=== PATIENT | male | born 1950 | race Two or more races ===

== ENCOUNTER 2024-07-07 10:01 | Emergency (ER) | payer OTHER ==
[~2024-07-07] VITALS: Ht 167.6 cm; Wt 79.4 kg
[2024-07-07] MEDS ORDERED: METFORMIN HCL500 M4 PO (10:23)
[2024-07-07 11:13] LABS: HEMATOCRIT 46.3 % (39.0-48.0); HEMOGLOBIN 15.8 g/dL (13-16.00); MEAN CELL VOLUME 91.4 fL (80.0-100.00); MEAN CORPUSCULAR HEMOGLOBIN 31.1 pg (27.00-32.0); PLATELET COUNT 173 K/uL (150-450); RED BLOOD COUNT 5.07 M/uL (4.00-6.00); RED CELL DISTRIBUTION WIDTH 13.3 % (11.5-14.5)
[2024-07-07 11:38] LABS: ALBUMIN 3.4 gm/dL (3.4-5.0); BILIRUBIN TOTAL 0.7 mg/dL (0.3-1.2); BILIRUBIN,CONJUGATED 0.22 mg/dL (0.0-0.2); BILIRUBIN,UNCONJUGATED 0.48 mg/dL (0.0-0.6); CALCIUM 8.6 mg/dL (8.5-10.1); CREATININE SERUM 1.44 mg/dL (0.70-1.30); GFR 47.82; POTASSIUM 4.02 mEq/L (3.5-5.1); TOTAL PROTEIN 7.2 gm/dL (6.4-8.2)
[2024-07-07 12:20] LABS: URINE APPEARANCE Clear; URINE BILIRRUBIN Negative (NEGATIVE); URINE BLOOD Trace; URINE COLOR Dark Yellow; URINE KETONE Trace (NEGATIVE); URINE LEUKOCYTE Negative; URINE NITRATE Negative; URINE PROTEIN 30 (NEGATIVE); URINE UROBILINOGEN 0.2 E.U./dl
[2024-07-07 12:21] LABS: URINE BACTERIA 26.4 uL (0.0-1933); URINE CAST 2.74 uL (0.0-1.40); URINE EPITHELIAL CELLS 7.8 uL (0.0-38.8); URINE RBC 2.5 uL (0.0-20.8); URINE WBC 7.5 uL (0.0-23.2)
[2024-07-07 12:32] LABS: URINE GLUCOSE >=1000 MG/DL (NEGATIVE)
== END 2024-07-07 14:08 | disposition home or self-care (01) ==
LOC: ER 10:01
PROVIDERS: General Practice
DX: J40 Bronchitis, not specified as acute or chronic (principal); R55 Syncope and collapse; R06.02 Shortness of breath; Z88.0 Allergy status to penicillin

== ENCOUNTER 2024-07-07 16:47 | Inpatient (IN) | payer OTHER ==
[~2024-07-07] VITALS: Ht 167.6 cm; Wt 78.0 kg
[~2024-07-07 16:47] MED LIST: METFORMIN HCL500 M4 PO
[2024-07-07] MEDS ORDERED: ACETAMINOPHEN 500 MG GEL..CAP PO ONE (17:45)
[2024-07-07] MEDS ORDERED: ATORVASTATIN CALCIUM 40 MG TABLET PO SCH (18:34)
[2024-07-07] MEDS ORDERED: ASPIRIN 81 MG TAB.CHEW PO SCH (18:34)
[2024-07-07] MEDS ORDERED: INSULIN LISPRO 1,000 UNIT/10 ML UNITS SUBCUTANEO PRN (18:45)
[2024-07-07] MEDS ORDERED: DEXTROSE 50 % IN WATER 0.5 G/ML DISP.SYRIN IV PRN (18:45)
[2024-07-07] MEDS ORDERED: 0.9 % SODIUM CHLORIDE 1,000 ML IV SCH (18:45)
[2024-07-07] MEDS ORDERED: ACETAMINOPHEN 500 MG GEL..CAP PO PRN (18:45)
[2024-07-07] MEDS ORDERED: ONDANSETRON HCL 4 MG in 0.9 % SODIUM CHLORIDE 50 ML IV PRN (18:45)
[2024-07-07 19:29] LABS: INR 1.1; PARTIAL THROMBOPLASTIN TIME 26.5 SECONDS (22.0-34.0); PROTHROMBIN TIME 11.9 SECONDS (9.0-11.5)
[2024-07-07 20:54] VITALS: BP 111/74; O2SAT 96
[2024-07-08 01:03] VITALS: BP 130/78; O2SAT 98
[2024-07-08 07:44] LABS: CHOL HDL RATIO 3.5 (0-5.0); TSH 3.32 uIU/mL (0.358-3.74)
[2024-07-08 08:10] VITALS: BP 127/69; O2SAT 98
[2024-07-08] MEDS ORDERED: FAMOTIDINE/PF 20 MG in 0.9 % SODIUM CHLORIDE 8 ML IV PUSH SCH (09:00)
[2024-07-08 09:11] LABS: HEMATOCRIT 47.6 % (39.0-48.0); HEMOGLOBIN 16.1 g/dL (13-16.00); MEAN CELL VOLUME 91.8 fL (80.0-100.00); MEAN CORPUSCULAR HGB CONC 33.8 g/dl (32.0-36.0); PLATELET COUNT 177 K/uL (150-450); RED BLOOD COUNT 5.18 M/uL (4.00-6.00); RED CELL DISTRIBUTION WIDTH 13.9 % (11.5-14.5)
[2024-07-08 09:38] LABS: ERYTHROCYTE SEDIMENTATION RATE 14 mm/hr
[2024-07-08 09:41] LABS: ALBUMIN 3.5 gm/dL (3.4-5.0); BILIRUBIN TOTAL 0.7 mg/dL (0.3-1.2); CALCIUM 8.7 mg/dL (8.5-10.1); CREATININE SERUM 1.47 mg/dL (0.70-1.30); GFR 46.7; GLOBULINA 4.3 G/DL (2.4-3.5); POTASSIUM 3.33 mEq/L (3.5-5.1); TOTAL PROTEIN 7.8 gm/dL (6.4-8.2)
[2024-07-08 09:51] LABS: C-REACTIVE PROTEIN 19.6 MG/DL (0.00-0.29)
[2024-07-08 10:05] LABS: URINE APPEARANCE Clear; URINE BILIRRUBIN Negative (NEGATIVE); URINE BLOOD Moderate; URINE COLOR Yellow; URINE KETONE 15 (NEGATIVE); URINE LEUKOCYTE Negative; URINE NITRATE Negative; URINE UROBILINOGEN 0.2 E.U./dl
[2024-07-08 10:08] LABS: URINE BACTERIA 13.8 uL (0.0-1933); URINE EPITHELIAL CELLS 9.1 uL (0.0-38.8); URINE RBC 7.6 uL (0.0-20.8); URINE WBC 1.8 uL (0.0-23.2)
[2024-07-08 10:12] LABS: URINE CAST 0.61 uL (0.0-1.40); URINE GLUCOSE 100 MG/DL (NEGATIVE); URINE PROTEIN 100 (NEGATIVE)
[2024-07-08 15:24] VITALS: BP 108/67; O2SAT 95
[2024-07-08] MEDS ORDERED: levoFLOXacin IN DEXTROSE 5 % 150 ML IV SCH (16:00)
[2024-07-08] MEDS ORDERED: METRONIDAZOLE/SODIUM CHLORIDE 100 ML IV SCH (17:00)
[2024-07-08 18:30] VITALS: BP 113/64; O2SAT 94
[2024-07-08] MEDS ORDERED: LACTOBACILLUS ACIDOPHILUS 1 CAP CAP PO ONE (18:30)
[2024-07-08] MEDS ORDERED: POTASSIUM BICARBONATE/CIT AC 25 MEQ TABLET.EFF PO SCH (20:14)
[2024-07-08 20:52] LABS: PH,URINE 5.5 (5.0-8.0); URINE APPEARANCE Clear; URINE BILIRRUBIN Negative (NEGATIVE); URINE BLOOD Moderate; URINE COLOR Yellow; URINE GLUCOSE Negative (NEGATIVE); URINE KETONE 15 (NEGATIVE); URINE LEUKOCYTE Negative; URINE NITRATE Negative; URINE UROBILINOGEN 0.2 E.U./dl
[2024-07-08 20:53] LABS: URINE BACTERIA 16.3 uL (0.0-1933); URINE EPITHELIAL CELLS 13.4 uL (0.0-38.8); URINE WBC 3.2 uL (0.0-23.2)
[2024-07-08 20:54] LABS: URINE CAST 1.37 uL (0.0-1.40); URINE PROTEIN 100 (NEGATIVE); URINE RBC 1.8 uL (0.0-20.8)
[2024-07-09] VITALS (9 sets, daily range): BP systolic 128–137; BP diastolic 61–67; O2SAT 89–98
[2024-07-09 08:12] LABS: HEMATOCRIT 38.2 % (39.0-48.0); HEMOGLOBIN 13.5 g/dL (13-16.00); MEAN CELL VOLUME 89.5 fL (80.0-100.00); MEAN CORPUSCULAR HEMOGLOBIN 31.5 pg (27.00-32.0); MEAN CORPUSCULAR HGB CONC 35.2 g/dl (32.0-36.0); PLATELET COUNT 155 K/uL (150-450); RED BLOOD COUNT 4.27 M/uL (4.00-6.00); RED CELL DISTRIBUTION WIDTH 14.2 % (11.5-14.5)
[2024-07-09 08:59] LABS: ALBUMIN 2.4 gm/dL (3.4-5.0); BILIRUBIN TOTAL 0.52 mg/dL (0.3-1.2); CALCIUM 7.4 mg/dL (8.5-10.1); CREATININE SERUM 0.91 mg/dL (0.70-1.30); GFR 81.22; GLOBULINA 2.8 G/DL (2.4-3.5); MAGNESIUM 2.1 mg/dL (1.8-2.4); POTASSIUM 3.84 mEq/L (3.5-5.1); TOTAL PROTEIN 5.2 gm/dL (6.4-8.2)
[2024-07-09] MEDS ORDERED: LACTOBACILLUS ACIDOPHILUS 1 CAP CAP PO SCH (09:00)
[2024-07-09] MEDS ORDERED: ATORVASTATIN CALCIUM 20 MG TABLET PO SCH (09:00)
[2024-07-09 09:07] LABS: C-REACTIVE PROTEIN 18.1 MG/DL (0.00-0.29)
[2024-07-09 09:17] LABS: PROSTATIC SPECIFIC ANTIGEN 4.27 NG/ML (0.010-4.00)
[2024-07-09 09:19] LABS: PHOSPHOROUS 1.8 mg/dL (2.5-4.9)
[2024-07-09] MEDS ORDERED: POTASSIUM PHOS,M-BASIC-D-BASIC 3 MM/ML VIAL IV NR (10:00)
[2024-07-10] VITALS (8 sets, daily range): BP systolic 97–145; BP diastolic 63–68; O2SAT 90–99
[2024-07-10 06:32] LABS: HEMATOCRIT 40.7 % (39.0-48.0); HEMOGLOBIN 14.1 g/dL (13-16.00); MEAN CELL VOLUME 89.5 fL (80.0-100.00); MEAN CORPUSCULAR HGB CONC 34.6 g/dl (32.0-36.0); PLATELET COUNT 173 K/uL (150-450); RED BLOOD COUNT 4.55 M/uL (4.00-6.00); RED CELL DISTRIBUTION WIDTH 13.7 % (11.5-14.5)
[2024-07-10 06:57] LABS: CREATININE SERUM 0.89 mg/dL (0.70-1.30); GFR 83.33; MAGNESIUM 2.3 mg/dL (1.8-2.4); POTASSIUM 4.68 mEq/L (3.5-5.1)
[2024-07-11] VITALS: BP 100/58; O2SAT 96
[2024-07-11 01:19] VITALS: O2SAT 100
[2024-07-11 06:21] VITALS: O2SAT 98
[2024-07-11 07:15] LABS: HEMATOCRIT 38.4 % (39.0-48.0); HEMOGLOBIN 13.5 g/dL (13-16.00); MEAN CELL VOLUME 88.2 fL (80.0-100.00); MEAN CORPUSCULAR HEMOGLOBIN 30.9 pg (27.00-32.0); PLATELET COUNT 174 K/uL (150-450); RED BLOOD COUNT 4.35 M/uL (4.00-6.00); RED CELL DISTRIBUTION WIDTH 13.9 % (11.5-14.5)
[2024-07-11 08:11] VITALS: O2SAT 98
[2024-07-11 08:25] LABS: ALBUMIN 2.5 gm/dL (3.4-5.0); BILIRUBIN TOTAL 0.57 mg/dL (0.3-1.2); CALCIUM 7.7 mg/dL (8.5-10.1); CREATININE SERUM 0.78 mg/dL (0.70-1.30); GFR 97.03; GLOBULINA 2.9 G/DL (2.4-3.5); MAGNESIUM 2.2 mg/dL (1.8-2.4); POTASSIUM 3.99 mEq/L (3.5-5.1); TOTAL PROTEIN 5.4 gm/dL (6.4-8.2)
[2024-07-11 08:33] LABS: C-REACTIVE PROTEIN 6.98 MG/DL (0.00-0.29)
[2024-07-11 08:38] LABS: PHOSPHOROUS 1.6 mg/dL (2.5-4.9)
[2024-07-11] MEDS ORDERED: POTASSIUM PHOS,M-BASIC-D-BASIC 3 MM/ML VIAL IV NR (10:00)
[2024-07-11] MEDS ORDERED: LEVOFLOXACIN750 MG PO (13:48)
[2024-07-11] MEDS ORDERED: METRONIDAZOLE500 MG PO (13:49)
[2024-07-11] MEDS ORDERED: INTESTINEX680 M2 PO (13:50)
[2024-07-11] MEDS ORDERED: LIPITOR20 MG PO (13:52)
[2024-07-11 14:06] VITALS: O2SAT 98
== END 2024-07-11 20:09 | disposition home or self-care (01) | DRG 683 ==
LOC: ER 16:47 → MEDI 18:58 → SEC-K 18:58 → SURG 07-08 00:01 → SEC-K 07-08 00:56 → SURG 07-08 13:41 → SURH 07-08 16:33
PROVIDERS: General Practice; Internal Medicine Infectious Disease; ADMIT Internal Medicine; ATTEND Internal Medicine
PROC: B030ZZZ Magnetic Resonance Imaging (MRI) of Brain (ICD-10-PCS; principal; 2024-07-07)
PROC: B246ZZZ Ultrasonography of Right and Left Heart (ICD-10-PCS; 2024-07-07)
PROC: BW21ZZZ Computerized Tomography (CT Scan) of Abdomen and Pelvis (ICD-10-PCS; 2024-07-08)
PROC: B345ZZZ Ultrasonography of Bilateral Common Carotid Arteries (ICD-10-PCS; 2024-07-08)
PROC: 4A12X4Z Monitoring of Cardiac Electrical Activity, External Approach (ICD-10-PCS; 2024-07-09)
DX: N17.8 Other acute kidney failure (principal); G45.9 Transient cerebral ischemic attack, unspecified; K52.89 Other specified noninfective gastroenteritis and colitis; E11.649 Type 2 diabetes mellitus with hypoglycemia without coma; Z79.4 Long term (current) use of insulin; E11.22 Type 2 diabetes mellitus with diabetic chronic kidney disease; I49.8 Other specified cardiac arrhythmias; R55 Syncope and collapse; R47.1 Dysarthria and anarthria
CPT/HCPCS: 70551